=== PATIENT | male | born 1975 | race Caucasian/White ===

== ENCOUNTER 2019-05-29 17:00 | Emergency (ER) | payer BC, OTHER ==
[2019-05-29] MEDS ORDERED: Lidocaine 1% 20 ML MDV ONE (17:43)
--- NOTE | 2019-05-29 20:00 | RAD ---
EXAM: 3 views of the right foot HISTORY: Removal of foreign body from the foot. COMPARISON: None FINDINGS: 3 views of the right foot shows no evidence of acute fracture or dislocation. No soft tissu e swelling is seen. No degenerative changes are present. No radiopaque foreign body is seen. IMPRESSION: No evidence of acute osseous abnormality.
== END 2019-05-29 20:12 | disposition home or self-care (01) ==
LOC: SCSER 17:00
DX: S91.341A Puncture wound with foreign body, right foot, initial encounter (principal); W26.8XXA Contact with other sharp object(s), not elsewhere classified, initial encounter
CPT/HCPCS: 10120; J2001